=== PATIENT | male | born 2000 | race Caucasian/White ===

== ENCOUNTER 2020-08-23 15:21 | Emergency (ER) | payer OTHER, SELFPAY ==
[2020-08-23 15:37] VITALS: BP 133/61; PULSE 70; RESP 16; O2SAT 100; BMI 23.1
[2020-08-23 16:06] LABS: Add Manual Diff / Slide Review NO; Basophils Absolute Auto 100 /uL (0-100); Basophils Percent Auto 1.4 % (0-2); Eosinophils Absolute Auto 200 /uL (0-450); Eosinophils Percent Auto 3.3 % (2-4); Hemoglobin 14.5 g/dL (13.5-17.5); Lymphocytes Absolute Auto 2200 /uL (1100-4500); Lymphocytes Percent Auto 38.2 % (25-40); Mean Corpuscular HGB Conc 33.8 % (30-36); Mean Corpuscular Hemoglobin 29.8 PG (26-34); Mean Corpuscular Volume 88.2 fL (80-100); Monocytes Absolute Auto 500 /uL (0-900); Monocytes Percent Auto 8.6 % (3-14); Neutrophils Absolute Auto 2900 /uL (1500-7000); Neutrophils Percent Auto 48.5 % (50-75); Platelet Count 238 X10^3/uL (150-400); Red Blood Cell Count 4.87 X10^6/uL (4.5-5.9); Red Cell Distribution Width 13.2 % (11.6-14.8); White Blood Cell Count 5.9 X10^3/uL (4.5-11.0)
[2020-08-23 16:08] VITALS: BP 136/61; PULSE 66; RESP 16; O2SAT 100
[2020-08-23 16:20] LABS: Acetaminophen < 10 ug/mL (10-30); Alanine Aminotransferase 15 IU/L (<50); Albumin 4.7 g/dL (3.5-5.0); Albumin Globulin Ratio 1.5 (1.0-2.8); Alkaline Phosphatase 68 U/L (38-126); Aspartate Aminotransferase 24 IU/L (17-59); BUN Creatinine Ratio 13.8 (6-22); Bilirubin Total 0.3 mg/dL (0.2-1.3); Blood Urea Nitrogen 9 mg/dL (9-20); Calcium 9.4 mg/dL (8.4-10.2); Carbon Dioxide 31 mmol/L (22-32); Chloride 103 mmol/L (98-107); Estimated Glomerular Filt Rate > 60.0 mL/min (>60); Ethanol (ETOH) < 10 mg/dL; Globulin 3.2 g/dL (1.7-4.1); Glucose 95 mg/dL (70-100); HEMOLYSIS 15 (0-50); Potassium 4.2 mmol/L (3.4-5.1); Salicylate < 1.0 mg/dL (<20); Sodium 140 mmol/L (137-145); Total Protein 7.9 g/dL (6.3-8.2)
[2020-08-23 16:47] LABS: Free T4, Direct Thyroxine 1.13 ng/dL (0.78-2.19)
[2020-08-23 17:01] LABS: Thyroid Stimulating Hormone 3.08 uIU/mL (0.47-4.68)
[2020-08-23 17:24] LABS: UR Morphine/Opiate cutoff 300 Negative (Negative); Ur Creatinine Normal (Normal); Ur Specific Gravity Normal (Normal); Urine Amphetamines Negative (Negative); Urine Barbiturates Negative (Negative); Urine Benzodiazepines Negative (Negative); Urine Cocaine Negative (Negative); Urine MDMA Negative (Negative); Urine Methadone Negative (Negative); Urine Methamphetamines Negative (Negative); Urine Oxycodone Negative (Negative); Urine Phencyclidine Negative (Negative); Urine Tetrahydrocannabinol Negative (Negative); Urine Tricyclic Antidepressant Negative (Negative); Urine pH Normal (Normal)
--- NOTE | 2020-08-23 17:26 | ED_ITS ---
HPI - Psych <Pacheco Bonilla DO - Last Filed: 08/24/20 07:23> General Chief Complaint: Psychiatric Symptoms Stated Complaint: SUICIDAL Time Seen by Provider: 08/23/20 15:48 Source: patient Mode of arrival: Ambulatory Limitations: no limitations History of Present Illness HPI Narrative: 19-year-old otherwise healthy male here for evaluation of suicidal ideation. He states that about a month ago he started having thoughts of hurting himself. 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 He contacted their clinic explained to them that he was having some depression issues. He states he was told to take some vitamins and he has been doing that however over the past month he feels like his symptoms have been worsening. He describes episodes where he standing high on a scaffolding and have some thoughts of jumping off a scaffolding. He also has thoughts of holding a bit grinder and thinking about hurting himself with a bit grinder. He denies ever attempting to kill himself although he does state that he occasionally causes some discomfort on his body by doing things like staying cold rather than covering himself with a blanket and not eating causing himself to be hungry for period of time. He does not done any cutting presently or in the past. He has no prior diagnoses of mental health issues and has never been admitted to the hospital in the past for this. He contacted the clinic again today who stated that he should be seen by a mental health provider. He contacted this facility which he does not know the name of and was told that they were not taking any new patient's until after September. He was then referred to a crisis line who told him to come to the emergency department. He is here voluntarily asking for help. Review of Systems <Pacheco Bonilla DO - Last Filed: 08/24/20 07:23> Constitutional Constitutional: Denies fever(s) and Denies headache(s) ENT Ears, Nose, Mouth, and Throat: Denies headache(s) Cardiovascular Cardiovascular: Denies chest pain and Denies dyspnea Respiratory Respiratory: Denies dyspnea Gastrointestinal Gastrointestinal: Denies abdominal pain, Denies nausea and Denies vomiting Genitourinary Genitourinary: Denies dysuria Genitourinary: Denies dysuria Musculoskeletal Musculoskeletal: Denies arthralgias and Denies myalgias Integumentary/Breasts Skin/Breast: Denies rash Neurologic Neurologic: Denies behavioral changes, Denies confusion and Denies headache(s) Psychiatric Psychiatric: Denies behavioral changes, Denies confusion, Reports depression and Denies mood swings Hematologic/Lymphatic Hematologic/Lymphatic: Denies easy bleeding and Denies easy bruising Allergic/Immunologic Allergic/Immunologic: Denies urticaria Patient History <DO Lencho Moore Last Filed: 08/24/20 07:23> Medical History Healthy adult Social History Smoking Status: Never smoker Smoking Status: Never smoker Substance Use Type: does not use Exam <DO Lencho Moore Last Filed: 08/24/20 07:23> Initial Vital Signs Initial Vital Signs: Vital Signs Pulse Rate 70 08/23/20 15:37 Respiratory Rate 16 08/23/20 15:37 Blood Pressure 133/61 08/23/20 15:37 Pulse Oximetry 100 08/23/20 15:37 Const General: cooperative, comfortable and well developed Limitations: mental status not altered [facility] Head: normal to inspection and normocephalic Resp Effort & Inspection: normal respiratory effort Auscultation: clear to auscultation bilaterally Cardio Rate: regular rate Rhythm: regular rhythm GI Inspection: non-distended Palpation: soft Skin Lesions: no lesions Rashes: no rashes Neuro General: patient alert, patient awake and patient oriented x3 Cognition: normal cognition Speech: speech normal Extrem General: normal to inspection and capillary refill normal Psych Appearance: grossly normal and well kempt <Hilda Bernard DO - Last Filed: 08/23/20 22:04> Initial Vital Signs Initial Vital Signs: Vital Signs Pulse Rate 70 08/23/20 15:37 Respiratory Rate 16 08/23/20 15:37 Blood Pressure 133/61 08/23/20 15:37 Pulse Oximetry 100 08/23/20 15:37 Scores <DO Lencho Moore Last Filed: 08/24/20 07:23> GCS Dinorah coma scale eye opening: Spontaneous [place] coma scale verbal response: Orientated [place] coma scale motor response: Obey commands Dinorah coma scale total score: 15 Course <DO Lencho Moore Last Filed: 08/24/20 07:23> Orders Ordered: ED Orders 08/23/20 15:54 Acetaminophen Stat Complete Blood Count AUTO DIFF Stat Comprehensive Metabolic Panel Stat Ethanol (ETOH) Stat Free T4, Direct Thyroxine Stat Salicylate Stat Thyroid Stimulating Hormone Stat 08/23/20 16:15 Consult to [facility] Gluer Machine Operator Stat 08/23/20 17:08 Urine Drug Screen, Rapid Stat 08/23/20 17:18 COVID19 Stat Vital Signs Vital signs: Vital Signs - 8 hr 08/23/20 15:37 08/23/20 16:08 08/23/20 21:58 Pulse Rate 70 66 78 Respiratory Rate 16 16 16 Blood Pressure 133/61 136/61 116/59 L Pulse Oximetry 100 100 100 <Hilda Bernard DO - Last Filed: 08/23/20 22:04> Orders Ordered: ED Orders 08/23/20 15:54 Acetaminophen Stat Complete Blood Count AUTO DIFF Stat Comprehensive Metabolic Panel Stat Ethanol (ETOH) Stat Free T4, Direct Thyroxine Stat Salicylate Stat Thyroid Stimulating Hormone Stat 08/23/20 [facility] 08/23/20 17:08 Urine Drug Screen, Rapid Stat 08/23/20 17:18 COVID19 Stat Vital Signs Vital signs: Vital Signs - 8 hr 08/23/20 15:37 08/23/20 16:08 08/23/20 21:58 Pulse Rate 70 66 78 Respiratory Rate 16 16 16 Blood Pressure 133/61 136/61 116/59 L Pulse Oximetry 100 100 100 MDM - Psych <Pacheco Bonilla, DO - Last Filed: 08/24/20 07:23> Lab Data Attestation: I reviewed the patient's lab results. Result diagrams: 08/23/20 15:54 08/23/20 15:54 Labs: Lab Results 08/23/20 08/23/20 08/23/20 Range/Units 15:54 15:54 15:54 WBC 5.9 (4.5-11.0) X10^3/uL RBC 4.87 (4.5-5.9) X10^6/uL Hgb 14.5 (13.5-17.5) g/dL Hct 43.0 (41-53) % MCV 88.2 (80-100) fL MCH 29.8 (26-34) PG MCHC 33.8 (30-36) % RDW 13.2 (11.6-14.8) % Plt Count 238 (150-400) X10^3/uL Neut % (Auto) 48.5 L (50-75) % Lymph % (Auto) 38.2 (25-40) % [place] % (Auto) 8.6 (3-14) % Eos % (Auto) 3.3 (2-4) % Baso % (Auto) 1.4 (0-2) % Neut # (Auto) 2900 (0177-1308) /uL Lymph # (Auto) 2200 (7423-8306) /uL [place] # (Auto) 500 (0-900) /uL Eos # (Auto) 200 (0-450) /uL Baso # (Auto) 100 (0-100) /uL Sodium 140 (137-145) mmol/L Potassium 4.2 (3.4-5.1) mmol/L Chloride 103 (98-107) mmol/L Carbon Dioxide 31 (22-32) mmol/L BUN 9 (9-20) mg/dL Creatinine 0.65 L (0.66-1.25) mg/dL Estimated GFR > 60.0 (>60) mL/min BUN/Creatinine Ratio 13.8 (6-22) Glucose 95 (70-100) mg/dL Calcium 9.4 (8.4-10.2) mg/dL Total Bilirubin 0.3 (0.2-1.3) mg/dL AST 24 (17-59) IU/L ALT 15 (<50) IU/L Alkaline Phosphatase 68 (38-126) U/L Total Protein 7.9 (6.3-8.2) g/dL Albumin 4.7 (3.5-5.0) g/dL Globulin 3.2 (1.7-4.1) g/dL Albumin/Globulin Ratio 1.5 (1.0-2.8) TSH 3.08 (0.47-4.68) uIU/mL Free T4 1.13 (0.78-2.19) ng/dL Salicylates < 1.0 (<20) mg/dL U Opiates 300ng/mL cut (Negative) Ur Oxycodone Screen (Negative) Urine Methadone Screen (Negative) Acetaminophen < 10 L (10-30) ug/mL Ur Barbiturates Screen (Negative) U Tricyclic Antidepress (Negative) Ur Phencyclidine Scrn (Negative) Ur Amphetamines Screen (Negative) U Methamphetamines Scrn (Negative) Ur MDMA Scrn (Ecstasy) (Negative) U Benzodiazepines Scrn (Negative) Urine Cocaine Screen (Negative) U Marijuana (THC) Screen (Negative) Ethyl Alcohol < 10 ( - 10) mg/dL COVID-19 PCR (Negative) 08/23/20 08/23/20 Range/Units 17:08 17:18 WBC (4.5-11.0) X10^3/uL RBC (4.5-5.9) X10^6/uL Hgb (13.5-17.5) g/dL Hct (41-53) % MCV (80-100) fL MCH (26-34) PG MCHC (30-36) % RDW (11.6-14.8) % Plt Count (150-400) X10^3/uL Neut % (Auto) (50-75) % Lymph % (Auto) (25-40) % [place] % (Auto) (3-14) % Eos % (Auto) (2-4) % Baso % (Auto) (0-2) % Neut # (Auto) (4363-9532) /uL Lymph # (Auto) (3398-5503) /uL [place] # (Auto) (0-900) /uL Eos # (Auto) (0-450) /uL Baso # (Auto) (0-100) /uL Sodium (137-145) mmol/L Potassium (3.4-5.1) mmol/L Chloride (98-107) mmol/L Carbon Dioxide (22-32) mmol/L BUN (9-20) mg/dL Creatinine (0.66-1.25) mg/dL Estimated GFR (>60) mL/min BUN/Creatinine Ratio (6-22) Glucose (70-100) mg/dL Calcium (8.4-10.2) mg/dL Total Bilirubin (0.2-1.3) mg/dL AST (17-59) IU/L ALT (<50) IU/L Alkaline Phosphatase (38-126) U/L Total Protein (6.3-8.2) g/dL Albumin (3.5-5.0) g/dL Globulin (1.7-4.1) g/dL Albumin/Globulin Ratio (1.0-2.8) TSH (0.47-4.68) uIU/mL Free T4 (0.78-2.19) ng/dL Salicylates (<20) mg/dL U Opiates 300ng/mL cut Negative (Negative) Ur Oxycodone Screen Negative (Negative) Urine Methadone Screen Negative (Negative) Acetaminophen (10-30) ug/mL Ur Barbiturates Screen Negative (Negative) U Tricyclic Antidepress Negative (Negative) Ur Phencyclidine Scrn Negative (Negative) Ur Amphetamines Screen Negative (Negative) U Methamphetamines Scrn Negative (Negative) Ur MDMA Scrn (Ecstasy) Negative (Negative) U Benzodiazepines Scrn Negative (Negative) Urine Cocaine Screen Negative (Negative) U Marijuana (THC) Screen Negative (Negative) Ethyl Alcohol ( - 10) mg/dL COVID-19 PCR Negative (Negative) Urine Dip Bedside Urine Glucose Negative Bedside Urine Bilirubin - Negative Bedside Urine Ketone - Negative Urine Specific Wheeler 1.015 Bedside Urine Occult Blood - Negative Bedside Urine pH 7.0 Bedside Urine Protein - Negative Bedside Urine Urobilinogen - Negative Bedside Urine Nitrite - Negative Bedside Urine Leukocytes - Negative Esterase MDM Narrative Medical decision making narrative: Patient was seen by social work in the emergency department. Patient is medically cleared. Will attempt to find voluntary placement. Care turned over to Dr. Bernard at change of shift to follow up and disposition. <Hilda Bernard, DO - Last Filed: 08/23/20 22:04> Lab Data Labs: Lab Results 08/23/20 08/23/20 08/23/20 Range/Units 15:54 15:54 15:54 WBC 5.9 (4.5-11.0) X10^3/uL RBC 4.87 (4.5-5.9) X10^6/uL Hgb 14.5 (13.5-17.5) g/dL Hct 43.0 (41-53) % MCV 88.2 (80-100) fL MCH 29.8 (26-34) PG MCHC 33.8 (30-36) % RDW 13.2 (11.6-14.8) % Plt Count 238 (150-400) X10^3/uL Neut % (Auto) 48.5 L (50-75) % Lymph % (Auto) 38.2 (25-40) % [place] % (Auto) 8.6 (3-14) % Eos % (Auto) 3.3 (2-4) % Baso % (Auto) 1.4 (0-2) % Neut # (Auto) 2900 (2954-9256) /uL Lymph # (Auto) 2200 (5263-4325) /uL [place] # (Auto) 500 (0-900) /uL Eos # (Auto) 200 (0-450) /uL Baso # (Auto) 100 (0-100) /uL Sodium 140 (137-145) mmol/L Potassium 4.2 (3.4-5.1) mmol/L Chloride 103 (98-107) mmol/L Carbon Dioxide 31 (22-32) mmol/L BUN 9 (9-20) mg/dL Creatinine 0.65 L (0.66-1.25) mg/dL Estimated GFR > 60.0 (>60) mL/min BUN/Creatinine Ratio 13.8 (6-22) Glucose 95 (70-100) mg/dL Calcium 9.4 (8.4-10.2) mg/dL Total Bilirubin 0.3 (0.2-1.3) mg/dL AST 24 (17-59) IU/L ALT 15 (<50) IU/L Alkaline Phosphatase 68 (38-126) U/L Total Protein 7.9 (6.3-8.2) g/dL Albumin 4.7 (3.5-5.0) g/dL Globulin 3.2 (1.7-4.1) g/dL Albumin/Globulin Ratio 1.5 (1.0-2.8) TSH 3.08 (0.47-4.68) uIU/mL Free T4 1.13 (0.78-2.19) ng/dL Salicylates < 1.0 (<20) mg/dL U Opiates 300ng/mL cut (Negative) Ur Oxycodone Screen (Negative) Urine Methadone Screen (Negative) Acetaminophen < 10 L (10-30) ug/mL Ur Barbiturates Screen (Negative) U Tricyclic Antidepress (Negative) Ur Phencyclidine Scrn (Negative) Ur Amphetamines Screen (Negative) U Methamphetamines Scrn (Negative) Ur MDMA Scrn (Ecstasy) (Negative) U Benzodiazepines Scrn (Negative) Urine Cocaine Screen (Negative) U Marijuana (THC) Screen (Negative) Ethyl Alcohol < 10 ( - 10) mg/dL COVID-19 PCR (Negative) 08/23/20 08/23/20 Range/Units 17:08 17:18 WBC (4.5-11.0) X10^3/uL RBC (4.5-5.9) X10^6/uL Hgb (13.5-17.5) g/dL Hct (41-53) % MCV (80-100) fL MCH (26-34) PG MCHC (30-36) % RDW (11.6-14.8) % Plt Count (150-400) X10^3/uL Neut % (Auto) (50-75) % Lymph % (Auto) (25-40) % [place] % (Auto) (3-14) % Eos % (Auto) (2-4) % Baso % (Auto) (0-2) % Neut # (Auto) (4619-9865) /uL Lymph # (Auto) (5938-6823) /uL [place] # (Auto) (0-900) /uL Eos # (Auto) (0-450) /uL Baso # (Auto) (0-100) /uL Sodium (137-145) mmol/L Potassium (3.4-5.1) mmol/L Chloride (98-107) mmol/L Carbon Dioxide (22-32) mmol/L BUN (9-20) mg/dL Creatinine (0.66-1.25) mg/dL Estimated GFR (>60) mL/min BUN/Creatinine Ratio (6-22) Glucose (70-100) mg/dL Calcium (8.4-10.2) mg/dL Total Bilirubin (0.2-1.3) mg/dL AST (17-59) IU/L ALT (<50) IU/L Alkaline Phosphatase (38-126) U/L Total Protein (6.3-8.2) g/dL Albumin (3.5-5.0) g/dL Globulin (1.7-4.1) g/dL Albumin/Globulin Ratio (1.0-2.8) TSH (0.47-4.68) uIU/mL Free T4 (0.78-2.19) ng/dL Salicylates (<20) mg/dL U Opiates 300ng/mL cut Negative (Negative) Ur Oxycodone Screen Negative (Negative) Urine Methadone Screen Negative (Negative) Acetaminophen (10-30) ug/mL Ur Barbiturates Screen Negative (Negative) U Tricyclic Antidepress Negative (Negative) Ur Phencyclidine Scrn Negative (Negative) Ur Amphetamines Screen Negative (Negative) U Methamphetamines Scrn Negative (Negative) Ur MDMA Scrn (Ecstasy) Negative (Negative) U Benzodiazepines Scrn Negative (Negative) Urine Cocaine Screen Negative (Negative) U Marijuana (THC) Screen Negative (Negative) Ethyl Alcohol ( - 10) mg/dL COVID-19 PCR Negative (Negative) Urine Dip Bedside Urine Glucose Negative Bedside Urine Bilirubin - Negative Bedside Urine Ketone - Negative Urine Specific [place] 1.015 Bedside Urine Occult Blood - Negative Bedside Urine pH 7.0 Bedside Urine Protein - Negative Bedside Urine Urobilinogen - Negative Bedside Urine Nitrite - Negative Bedside Urine Leukocytes - Negative Esterase MDM Narrative Medical decision making narrative: Patient signed out to me by Dr. Bonilla he accepted at [facility]. Transport here. Discharge Plan Departure Patient Disposition: [facility] Clinical Impression: Suicidal ideation
[2020-08-23 17:34] LABS: COVID19 -Nasal RAPID Negative (Negative)
--- NOTE | 2020-08-23 17:39 | CM.SWNOTE ---
ENERGY SALES CONSULTANT note ENERGY SALES CONSULTANT - Track Repairer Helper Assessment ENERGY SALES CONSULTANT - Track Repairer Helper Assessment Start: 08/23/20 17:05 Freq: Status: Active Protocol: Document 08/23/20 17:17 DARLINE (Rec: 08/23/20 17:38 DARLINE [id number]) ENERGY SALES CONSULTANT/Track Repairer Helper Assessment Time Spent with Patient Start date 08/23/20 Visit Start Time 16:10 End date 08/23/20 Visit End Time 17:00 Total time Care Management spent on 50 patient visit-in minutes Mental Health Screening Include Onset, Duration, Intensity Presenting Problem Patient presents to ED today for depression and suicidal ideation with plan, means, and recent attempts. Patient reports he has been feeling really depressed for several months. 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 Patient reports he has come very close to suicide by jumping from scaffolding, but his plan was interrupted by his coworker returning to the job site. Patient endorses considering suicide by crashing his car into a tree or by hypothermia. Precipitating Event(s) Patient moved from [place] to [place] in March,. Patient had a plan to move in an work with sister in [place], but sister moved to [place] while patient was moving to [place]. Patient reports requesting a week of leave from work and missing several days due to depression and SI. Patient reports he talked with the medical clinic at his work, who referred him to a crisis line, who informed patient they recommended coming to the ED. Patient Strengths Patient is polite, calm, and conscientious of how his choices impact those around him. Current Behavioral Health Provider(s) None. Include Facility, Provider, Ph. # Psych. Hx Mental Health and Chemical Patient endorses having Dependency periods of depression throughout his life and had considered suicide once before. Patient does explain that he struggled in school, and that he was often unable to attend class or complete homework even if I knew it was the right thing. Patient states he started experiencing anxiety prior to attending classes starting in middle school. Patient states he has felt ineffective during his life and career. Patient does not disclose any concerns with GEE or ETOH use. Family Hx of Behavioral Abuse None reported. Psychiatric Hospitalizations (date(s)/ None. location) Psychosocial information & Support Patient is a 19 y/o male who Systems works in construction in [place]. Patient moved here to be closer to his siblings, but his siblings moved away from [place] immediately prior to his arrival. Patient is currently living in a bus on someone's property. Patient reports he is isolated in [place]. Patient states he is in communication with his sisters , but that he does not think that they are able to provide the emotional energy to support him. School/Work Patient has completed high school and current works in construction. Legal Concerns Legal Matters - Outstanding Issues None Mental Status Orientation (Person/Place/Time) Oriented x3 Stated Mood really depressed Affect (Congruent with Mood?) Calm, slightly euthymic, stable, incongruent with mood. Thought Content - Specify/Describe No hallucinations or delusions Obsessions, Delusions, Hallucinations observed or reported. Patient reports thinking about suicide in many different contexts, and states that he often feels worried that he is a burden to those around him based on his career. Patient does describe feeling disconnected from himself while at work I don't feel human. Thought Processes (Dwjixak-Znuewyth-Aaqr Coherent, sometimes Wjpinzie-Esxsxgpv-Xemgpyrtkk- circumstantial Rpxkknlquanjue-Jtrqvwf-Fowgkvjvykns- Thought Blocking) Speech (Zizeli-Ifhr-Ufxmmtl-Rapid-Soft- Soft Loud-Pressured) Motor (Qmlegj-Dqnoeredv-Dnqx-Other) Normal Insight (Nxun-Macu-Bzkb/Limited) Fair Judgement (Jkir-Tdxd-Xdil/Limited) Fair Impulse Control (Adequate-Impaired) Adequate Memory (Vblegkzgl-Zmhigo-Przrve, Intact during interview, not Impaired-Intact) formally assessed. Concentration (Intact-Impaired) Intact Attention (Intact-Impaired) Intact Behavior (Appropriate-Inappropriate) Appropriate Risk Assessment Suicidal Ideation (Plan) Yes Homicidal Ideation (Plan) No Comment Patient denies SI, endorses SI with plan and means. Patient states he thinks about suicide by using tools from his work, and has considered jumping from scaffolding while at work , and has considered suicide by cutting himself with an angle napper grinder. Patient endorses considering suicide outside of work, but states he feels he is more likely to attempt while at work, and has recently taken time off due to this. Intervention Intervention ENERGY SALES CONSULTANT meets with patient. Patient discusses recent relocation, hx of depression and anxiety, and current SI with plan and means. Patient reports he is isolated and currently does not have a behavioral health support team . ENERGY SALES CONSULTANT and patient discuss inpatient treatment vs. outpatient. ENERGY SALES CONSULTANT explains inpatient options, and patient states he is interested in inpatient behavioral health treatment. Based on significance of attempts, access to tools, lack of outpatient or social support, it is the opinion of this ENERGY SALES CONSULTANT that patient would benefit from inpatient hospitalization for SI. ENERGY SALES CONSULTANT discusses this with Dr. Bonilla who indicates understanding. Plan RA Plan ENERGY SALES CONSULTANT will seek inpatient bed for patient. MARILEE Manrique
--- NOTE | 2020-08-23 20:20 | CM.SWNOTE ---
MEDICAL SERVICE TECHNICIAN Note Following assessment, MEDICAL SERVICE TECHNICIAN contacts [facility] seeking placement for patient. Staff at [facility] inform MEDICAL SERVICE TECHNICIAN that there are open beds and request clinicals be faxed. MEDICAL SERVICE TECHNICIAN faxes clinicals to [facility] at [phone]. MEDICAL SERVICE TECHNICIAN contacts [facility] at 1900 for update. [facility] requests clinicals be re-faxed, but informs MEDICAL SERVICE TECHNICIAN that there are still open beds. MEDICAL SERVICE TECHNICIAN re-faxes clinicals and calls [facility]. Staff at [facility] confirm receipt of clinical packet. At 2000, MEDICAL SERVICE TECHNICIAN contacts [facility]. Staff at [facility] report they are still reviewing file and will call hospital later in evening. MEDICAL SERVICE TECHNICIAN leaves [phone] for callback due to shift change. MEDICAL SERVICE TECHNICIAN leaves paper clinicals in paper chart and updates Dr. Bernard, LIYAH Camacho, and CHRIS Farrar. MEDICAL SERVICE TECHNICIAN updates patient. All paties remain agreeable to plan. PL: Patient to xfer to inpatient tx upon acceptance from [facility]. Stanley Lagunas MSW
[2020-08-23 21:58] VITALS: BP 116/59; PULSE 78; RESP 16; O2SAT 100
== END 2020-08-23 22:10 | disposition short-term general hospital (02) ==
PROVIDERS: Emergency Medicine; Emergency Provider Emergency Medicine
DX: R45.851 Suicidal ideations (principal); F32.9 Major depressive disorder, single episode, unspecified
CPT/HCPCS: 36415; 80053; 80305; 80320; 80329; 81003; 84439; 84443; 85025; 87635; 99284; G0480